=== PATIENT | male | born 1995 | race African-American/Black ===

== ENCOUNTER 2025-01-27 21:11 | Emergency (ER) | payer SELFPAY ==
[~2025-01-27] VITALS: Ht 183.5 cm; Wt 8.2 kg
[2025-01-27 21:25] VITALS: TEMP 98.8
[2025-01-27 23:30] VITALS: BP 129/87; PULSE 68; RESP 15; O2SAT 98
[2025-01-27] MEDS ORDERED: IBUP-1492 PO (23:50)
[2025-01-27] MEDS: IBUPROFEN 600 MG TABLET PO ONE (23:56)
== END 2025-01-28 00:04 | disposition home or self-care (01) ==
LOC: EMS 21:11
DX: M54.2 Cervicalgia (principal); M25.511 Pain in right shoulder; J45.909 Unspecified asthma, uncomplicated; V89.2XXA Person injured in unspecified motor-vehicle accident, traffic, initial encounter; Y93.89 Activity, other specified; Y92.410 Unspecified street and highway as the place of occurrence of the external cause; Y99.8 Other external cause status
CPT/HCPCS: 99283